=== PATIENT | female | born 1940 | race Caucasian/White ===

== ENCOUNTER 2019-08-29 09:25 | Inpatient (IN) | payer MEDICARE, OTHER ==
[2019-08-25 15:05] LABS: Basophils # (auto) 0 10 ^3/uL (0-0.2); Eosinophils # (auto) 0.1 10 ^3/uL (0-0.8); Eosinophils % (auto) 1.4 % (0.0-7.0); Lymphocytes # (auto) 1.2 10 ^3/uL (0.4-5.4); Monocytes # (auto) 0.4 10 ^3/uL (0-1.3); Nucleated Red Blood Cells % 0.1 %; Red Cell Distribution Width 15.4 % (11.8-14.3); White Blood Cell 5.2 10^3/uL (4.4-10.8)
[2019-08-25 15:06] LABS: Basophils % (auto) 0.4 % (0.0-2.0); Hematocrit 40.4 % (36.0-46.0); Hemoglobin 12.9 g/dL (12.2-16.2); Lymphocytes % (auto) 22.3 % (10.0-50.0); Mean Corpuscular Hemoglobin 26.6 pg (28.0-32.0); Mean Corpuscular Volume 83.2 fL (80.0-100.0); Neutrophils # (auto) 3.6 10 ^3/uL (1.6-8.6); Neutrophils % (auto) 68.9 % (37.0-80.0); Platelet Count (auto) 226 10^3/uL (140-450); Red Blood Cells 4.86 10^6/uL (4.0-5.20)
[2019-08-25 15:11] LABS: Urine Bacteria NONE SEEN /hpf (None Seen); Urine Blood Negative /uL (Negative); Urine Specific Gravity 1.008 (1.001-1.035); Urine WBC 5 /hpf (0 - 5)
[2019-08-25 15:14] LABS: Albumin 3.8 g/dL (3.4-5.0); Calcium 9.2 mg/dL (8.5-10.1); Potassium 3.9 mmol/L (3.5-5.1)
[2019-08-25 15:15] LABS: INR 0.98 (0.9-1.15); Partial Thromboplastin Time 28.2 sec (23.64-32.05)
[2019-08-25 15:18] LABS: BUN/Creatinine Ratio 18.3; Bilirubin, Total 0.4 mg/dL (0.2-1.0); Total Protein 7.7 g/dL (6.4-8.2)
[~2019-08-29] VITALS: Ht 167.6 cm; Wt 61.4 kg
[~2019-08-29 09:25] MED LIST: HYDR-531 PO; LOSA-39 PO; NARA2.5T PO
[2019-08-31] MEDS ORDERED: ceFAZolin 1GM/50ML 100 ML IV ONE (06:22)
[2019-08-31] MEDS ORDERED: TETRACAINE 1% INJ 2 ML VIAL IJ ONE (07:18)
[2019-08-31] MEDS ORDERED: ROPIVACAINE 0.5% (5MG/ML) 20ML AMPULE IJ ONE (07:18)
[2019-08-31] MEDS ORDERED: fentaNYL CITRATE 100 MCG/2 ML VL ONE (07:23)
[2019-08-31] MEDS ORDERED: MIDAZOLAM HCL 1MG/1ML-2 ML VIAL ONE ×2 (07:23→08:01)
[2019-08-31] MEDS ORDERED: PROPOFOL 10 MG/ML 20 ML IV ONE (07:58)
[2019-08-31] MEDS ORDERED: DexAMETHasone SOD PHOS 10MG/1ML VIAL INJ ONE (07:58)
[2019-08-31] MEDS ORDERED: ONDANSETRON HCL 4 MG/2 ML VIAL IV PRN (08:30)
[2019-08-31] MEDS ORDERED: HYDROmorphone HCL 2 MG/ML VL IV PRN (08:30)
[2019-08-31] MEDS ORDERED: ePHEDrine SULFATE 50 MG/ML AMP IV PRN (08:30)
[2019-08-31] MEDS ORDERED: LABETALOL HCL 5 MG/ML 4ML SYRINGE IV PRN (08:30)
[2019-08-31] MEDS ORDERED: hydrALAZINE HCL 20 MG/ML VL IV PRN ×2 (08:30→15:15)
[2019-08-31] MEDS ORDERED: MIDAZOLAM HCL 1MG/1ML-2 ML VIAL IV PRN (08:30)
[2019-08-31 12:30] VITALS: BP 163/87
[2019-08-31] MEDS ORDERED: ACETAMINOPHEN 325 MG TAB PO PRN (12:30)
[2019-08-31] MEDS ORDERED: NITROGLYCERIN 0.4 MG SL TAB SL PRN (12:30)
[2019-08-31 12:58] VITALS: BP 163/87
[2019-08-31] MEDS: LACTATED RINGER'S 1,000 ML IV SCH (13:27)
[2019-08-31] MEDS: ceFAZolin 1GM/50ML 50 ML IV SCH ×2 (13:29→18:36)
[2019-08-31] MEDS: SODIUM CHLOR 0.9% PF (SALINE LOCK) 10ML VIAL/SYR IV SCH ×2 (14:00→23:35)
[2019-08-31] MEDS ORDERED: LOSARTAN POTASSIUM 50 MG TAB PO ONE (15:15)
[2019-08-31] MEDS: HYDROcodone-ACET 10/325MG TAB PO PRN ×2 (15:47→20:55)
[2019-08-31] MEDS ORDERED: AMERGE 2.5 MG PO PRN (16:15)
[2019-08-31 17:00] VITALS: BP 160/85
[2019-08-31] MEDS: DOCUSATE SOD 100 MG CAP PO SCH (20:55)
[2019-08-31 22:00] VITALS: BP 147/84
[2019-09-01] MEDS: HYDROcodone-ACET 10/325MG TAB PO PRN ×3 (01:00→09:26)
[2019-09-01] MEDS: ceFAZolin 1GM/50ML 50 ML IV SCH (01:00)
[2019-09-01] MEDS: TEMAZEPAM 15 MG CAP PO PRN (01:30)
[2019-09-01 05:00] VITALS: BP 112/63
[2019-09-01] MEDS: SODIUM CHLOR 0.9% PF (SALINE LOCK) 10ML VIAL/SYR IV SCH ×3 (06:20→21:34)
[2019-09-01 07:10] LABS: Hematocrit 31.3 % (36.0-46.0); Hemoglobin 10.4 g/dL (12.2-16.2)
[2019-09-01 07:29] LABS: Potassium 3.7 mmol/L (3.5-5.1)
[2019-09-01 07:35] LABS: BUN/Creatinine Ratio 15.5; Calcium 8.3 mg/dL (8.5-10.1); Magnesium 1.9 mg/dL (1.6-2.6)
[2019-09-01 08:15] VITALS: BP 139/71
[2019-09-01] MEDS: LACTATED RINGER'S 1,000 ML IV SCH (08:17)
[2019-09-01 09:00] VITALS: BP 139/71
[2019-09-01] MEDS: DOCUSATE SOD 100 MG CAP PO SCH ×2 (09:25→21:35)
[2019-09-01] MEDS: ENOXAPARIN SOD 40 MG/0.4 ML SYRINGE SC SCH (09:31)
[2019-09-01] MEDS: LOSARTAN POTASSIUM 50 MG TAB PO SCH (09:31)
[2019-09-01] MEDS ORDERED: oxyCODONE ER 10 MG TAB PO ONE (12:15)
[2019-09-01 13:00] VITALS: BP 145/66
[2019-09-01] MEDS ORDERED: HYDROmorphone HCL 2 MG/ML VL IV PRN (13:15)
[2019-09-01 17:00] VITALS: BP 133/76
[2019-09-01 21:38] VITALS: BP 146/74
[2019-09-02 04:56] VITALS: BP 148/74
[2019-09-02 05:52] LABS: Hematocrit 32.9 % (36.0-46.0); Hemoglobin 10.8 g/dL (12.2-16.2)
[2019-09-02] MEDS: SODIUM CHLOR 0.9% PF (SALINE LOCK) 10ML VIAL/SYR IV SCH ×3 (06:00→21:00)
[2019-09-02 09:00] VITALS: BP_SYST 103; BP_SYST 121; BP_DIAS 62; BP_DIAS 63
[2019-09-02] MEDS: DOCUSATE SOD 100 MG CAP PO SCH ×2 (09:19→21:00)
[2019-09-02] MEDS: ENOXAPARIN SOD 40 MG/0.4 ML SYRINGE SC SCH (09:20)
[2019-09-02] MEDS: LOSARTAN POTASSIUM 50 MG TAB PO SCH (09:21)
[2019-09-02] MEDS ORDERED: levoFLOXacin 500MG 100 ML IV ONE (10:45)
[2019-09-02 10:58] LABS: Albumin 2.8 g/dL (3.4-5.0); Calcium 8.5 mg/dL (8.5-10.1); Potassium 3.7 mmol/L (3.5-5.1)
[2019-09-02 11:01] LABS: BUN/Creatinine Ratio 7.7; Bilirubin, Total 0.6 mg/dL (0.2-1.0); Total Protein 6.3 g/dL (6.4-8.2)
[2019-09-02 11:49] LABS: Basophils # (auto) 0 10 ^3/uL (0-0.2); Basophils % (auto) 0.2 % (0.0-2.0); Eosinophils # (auto) 0 10 ^3/uL (0-0.8); Hematocrit 33.6 % (36.0-46.0); Lymphocytes # (auto) 0.8 10 ^3/uL (0.4-5.4); Lymphocytes % (auto) 10.1 % (10.0-50.0); Mean Corpuscular Hemoglobin 27.1 pg (28.0-32.0); Mean Corpuscular Hgb Conc. 32.7 g/dL (32.0-36.0); Mean Corpuscular Volume 82.8 fL (80.0-100.0); Monocytes # (auto) 0.8 10 ^3/uL (0-1.3); Monocytes % (auto) 10.6 % (0.0-12.0); Neutrophils # (auto) 6.3 10 ^3/uL (1.6-8.6); Neutrophils % (auto) 79.1 % (37.0-80.0); Platelet Count (auto) 213 10^3/uL (140-450); Red Blood Cells 4.06 10^6/uL (4.0-5.20); Red Cell Distribution Width 15.2 % (11.8-14.3); White Blood Cell 7.9 10^3/uL (4.4-10.8)
[2019-09-02 12:42] LABS: Urine Bacteria FEW /hpf (None Seen); Urine Blood 1+ /uL (Negative); Urine Hyaline Cast FEW /lpf (0 - 2); Urine Mucus FEW (None Seen); Urine Specific Gravity 1.015 (1.001-1.035); Urine WBC 6 /hpf (0 - 5)
[2019-09-02 13:00] VITALS: BP 121/76
[2019-09-02] MEDS ORDERED: ONDANSETRON HCL 4 MG/2 ML VIAL IV PRN (13:00)
[2019-09-02 17:00] VITALS: BP 137/62
[2019-09-02 21:54] VITALS: BP 146/72
[2019-09-03] MEDS: TEMAZEPAM 15 MG CAP PO PRN (01:26)
[2019-09-03 05:12] VITALS: BP 137/64
[2019-09-03] MEDS: SODIUM CHLOR 0.9% PF (SALINE LOCK) 10ML VIAL/SYR IV SCH (05:21)
[2019-09-03 07:19] LABS: Hemoglobin 10.4 g/dL (12.2-16.2)
[2019-09-03 07:22] LABS: Hematocrit 31.7 % (36.0-46.0)
[2019-09-03 09:00] VITALS: BP 132/71
[2019-09-03] MEDS: ENOXAPARIN SOD 40 MG/0.4 ML SYRINGE SC SCH (09:22)
[2019-09-03] MEDS: DOCUSATE SOD 100 MG CAP PO SCH (09:23)
[2019-09-03] MEDS: LOSARTAN POTASSIUM 50 MG TAB PO SCH (09:23)
[2019-09-03] MEDS ORDERED: levoFLOXacin 500MG 100 ML IV SCH (10:00)
[2019-09-03 12:24] VITALS: BP 132/71
[2019-09-03 13:00] VITALS: BP 137/67
== END 2019-09-03 13:53 | disposition home or self-care (01) | DRG 470 ==
LOC: OVERFLOW 08-31 05:53 → EAST 08-31 12:58 → TELE-EAST 08-31 22:02 → EAST 09-01 13:40
PROVIDERS: ADMIT Orthopaedic Surgery; ATTEND Internal Medicine
PROC: 0MBM0ZZ Excision of Left Hip Bursa and Ligament, Open Approach (ICD-10-PCS; 2019-08-31)
PROC: 0SRB0JA Replacement of Left Hip Joint with Synthetic Substitute, Uncemented, Open Approach (ICD-10-PCS; principal; 2019-08-31 07:32)
DX: M16.12 Unilateral primary osteoarthritis, left hip (principal); I10 Essential (primary) hypertension; G43.909 Migraine, unspecified, not intractable, without status migrainosus; M70.72 Other bursitis of hip, left hip; Z90.710 Acquired absence of both cervix and uterus; Z96.643 Presence of artificial hip joint, bilateral; D64.9 Anemia, unspecified; I25.10 Atherosclerotic heart disease of native coronary artery without angina pectoris
CPT/HCPCS: 36415; 71045; 73501; 73502; 76000; 80048; 80053; 81001; 83735; 85014; 85018; 85025; 85610; 85730; 86850; 86900; 86901; 87040; 87635; 97163; A4565; C1776; G0378; J0690; J1100; J1956; J2250; J2405; J2704